=== PATIENT | female | born 1960 | race Caucasian/White ===

== ENCOUNTER → 2019-03-07 | Outpatient (CLI) | payer OTHER ==
[2018-12-26 15:00] VITALS: BP 95/45
[~2019-03-07] MED LIST: MULT1TAB52 PO; OXYC1TAB19 PO
--- NOTE | 2019-03-07 16:44 | KCIC ---
[facility] radiograph of the orbits 03/07/2019 CLINICAL HISTORY: Pre-MRI evaluation. History of metal exposure to the eyes. Damico digital radiographs of the skull were obtained with the patient looking up and down. No radiopaque foreign body is seen involving either orbit. The visualized paranasal sinuses are clear. No fracture is seen. IMPRESSION: No radiopaque foreign body is seen involving either orbit. Electronically signed by: Kushal Fernandez MD (03/07/2019 4:41 PM) [facility] [place]-KCIC1
--- NOTE | 2019-03-08 11:41 | KCIC ---
MR of the MR of the right shoulder HISTORY: Right shoulder pain since a fall in December. TECHNIQUE: Routine multiplanar sequences are obtained. FINDINGS: The acromioclavicular joint is mildly degenerative. Full-thickness rotator cuff tear of the supraspinatus tendon and extending into the anterior infraspinatus tendon. Retraction measures 3 cm. Partial tearing through the remaining infraspinatus tendon. Subscapularis tendon is grossly intact. Trace fluid in the subdeltoid bursa. No evidence of a labral tear or acute articular cartilage defect. The biceps tendon is intact. No bone destruction or acute fracture. No acute soft tissue abnormality. IMPRESSION: Rotator cuff tear, with a moderate-sized full-thickness retracted component involving the supraspinatus through the anterior infraspinatus tendon. Electronically signed by: Zay Lemos MD (03/08/2019 11:38 AM) [facility]-KCIC2
== END | disposition home or self-care (01) ==
LOC: KCIC MRI 15:39
PROVIDERS: ATTEND Orthopaedic Surgery
DX: Z03.89 Encounter for observation for other suspected diseases and conditions ruled out (principal); M75.101 Unspecified rotator cuff tear or rupture of right shoulder, not specified as traumatic
CPT/HCPCS: 70030; 73221

== ENCOUNTER 2019-05-03 05:56 | Day surgery (SDC) | payer OTHER ==
[~2019-05-03 05:56] MED LIST changes: +ASCO1TAB14 PO; +PREMPRO 0.3 MG1 EACH PO
[2019-05-03] MEDS ORDERED: BUPIVAC MPF-EPI 0.5%-1:200000 30 ML VIAL. ONE (06:15)
[2019-05-03] MEDS ORDERED: PROPOFOL 20 ML IV ONE (06:48)
[2019-05-03] MEDS ORDERED: BUPIVACAINE MPF 0.5% 10 ML VIAL. IJ ONE (07:00)
[2019-05-03] MEDS ORDERED: IV RINGERS,LACTATED 1000ML 1,000 ML IV SCH (07:00)
[2019-05-03] MEDS ORDERED: BUPIVACAINE MPF 0.5% 30 ML VIAL. ONE (07:13)
[2019-05-03] MEDS ORDERED: BUPIVACAINE MPF 0.25% 30 ML VIAL. ONE (07:14)
[2019-05-03] MEDS ORDERED: BUPIVAC MPF-EPI 0.5%-1:200000 30 ML VIAL. INJ ONE (07:15)
--- NOTE | 2019-05-03 07:18 | DISCH ---
DISCHARGE INSTRUCTIONS Condition on Discharge Condition on Discharge: Stable Activity After Discharge Activity Instructions for Disc: Other, see below (immediate passive range of motion advancing to active range of motion and strengthening as tolerated no immobilization or other restrictions) Diet after Discharge Diet after Discharge: Regular Wound Incision Care Wound/Incision Care: Ice to area for comfort Community/Resources/Services Services at Discharge: PT EVALUATE & TREAT (prescription provided for physical therapy to start tomorrow) Contacting the DRKei after DC Call your doctor for: Concerns you may have Follow-Up Follow up with: Dr. Castelan 1 week TASNEEM CASTELAN MD May 03, 2019 07:18
[2019-05-03] MEDS ORDERED: fentaNYL PF VIAL 100 MCG/2 ML VIAL ONE (07:36)
--- NOTE | 2019-05-03 07:48 | PDOC4 ---
Operative Note Operative Note Date of surgery: 05/03/2019 Preoperative diagnosis: History of right shoulder rotator cuff repair with subsequent adhesive capsulitis right shoulder Postoperative diagnosis: Same Operative procedure: Right shoulder manipulation under anesthesia and injection glenohumeral joint Surgeon: Flip Anesthesia: Deep sedation provided by anesthesia Complications: None Operative indications: Sultana is about 5 weeks out from rotator cuff repair and although doing initially well in physical therapy has gotten more stiff despite trying to push stretching exercises at physical therapy and with a home exercise program. She is now developed adhesive capsulitis and we discussed the treatment options in detail in my clinic note of yesterday. She agreed to proceed with operative evaluation and treatment of a shoulder manipulation and injection Operative text: Patient was identified procedure verified and after adequate amounts of propofol sedation were administered timeout was performed and the right shoulder and procedure were verified and the shoulder was first examined under anesthesia found to lack approximately 80 of elevation as well as terminal external rotation in abduction. About 165 of elevation was restored after the palpable release of tissue and she likewise achieved all but the terminal 15 of external rotation and abduction and normal internal rotation compared to the contralateral side. Normal stability was retained she was then injected in the glenohumeral joint with 10 mL of half percent Marcaine with epinephrine. Patient tolerated the procedure well TASNEEM MORENO MD May 03, 2019 07:48
[2019-05-03] MEDS ORDERED: oxyCODONE/APAP 7.5/325 1 TAB TABLET ONE (07:51)
[2019-05-03 07:58] VITALS: BP 113/58
[2019-05-03] MEDS ORDERED: fentaNYL PF VIAL 100 MCG/2 ML VIAL IV ONE ×2 (08:00→08:15)
[2019-05-03] MEDS ORDERED: oxyCODONE/APAP 7.5/325 1 TAB TABLET PO ONE (08:15)
== END 2019-05-03 08:24 ==
LOC: SURG 05:56
PROVIDERS: ATTEND Orthopaedic Surgery
DX: M75.01 Adhesive capsulitis of right shoulder (principal); Z98.51 Tubal ligation status; Z98.890 Other specified postprocedural states; Z87.891 Personal history of nicotine dependence; Z72.89 Other problems related to lifestyle; Z88.0 Allergy status to penicillin
CPT/HCPCS: 20610; 23700; J2704; J3010; J3490

== ENCOUNTER → 2021-02-13 | Outpatient (CLI) | payer OTHER ==
[~2021-02-13] MED LIST changes: +ACET1TAB33 PO; +MULT-445 PO; +MULT-735 PO; -MULT1TAB52 PO; +NAPR-683 PO
== END ==
LOC: LAB 09:09
PROVIDERS: ATTEND Orthopaedic Surgery
DX: Z01.812 Encounter for preprocedural laboratory examination (principal); M75.122 Complete rotator cuff tear or rupture of left shoulder, not specified as traumatic; Z20.822 Contact with and (suspected) exposure to COVID-19
CPT/HCPCS: U0003

== ENCOUNTER → 2021-02-13 | Outpatient (CLI) | payer OTHER ==
[~2021-02-13] MED LIST changes: +BUPIVACAINE MPF 0.5% 10 ML VIAL. IJ ONE; +IOHEXOL 300 MG/ML 50 ML VIAL. INT ART ONE; +methylPREDNISolone ACETATE 80 MG/ML VIAL. INT ART ONE
--- NOTE | 2021-02-13 15:33 | RAD ---
EXAM: Fluoroscopically guided right injection. HISTORY: 60-year-old woman with right hip pain, referred for fluoroscopically guided right hip inject ion of Depo-Medrol and local anesthetic.. TECHNIQUE: The risks and benefits of the procedure were discussed with the patient and written and ve rbal consent were obtained. A time out procedure was performed. Fluoroscopic imaging of the right hip was performed. The overlying skin was sterilely prepped and inf iltrated with 1% lidocaine for local anesthesia. A 22-gauge spinal needle was then advanced into the joint space under fluoroscopic guidance. Intra-articular positioning positioning was confirmed with a small injection of iodinated contrast. A cocktail containing 1 mL of 80 mg of Depo-Medrol, admixed w ith 3 mL of 0.5 percent bupivacaine was injected into the right hip and the tubing was flushed with a n additional 2 mL of 0.5 percent bupivacaine. Instrumentation was withdrawn and a sterile dressing pl aced. There were no immediate complications. Fluoroscopy time 0.3 minutes. 5 images were obtained. IMPRESSION: Successful fluoroscopically guided right hip injection for intra-articular steroid and lo alok anesthetic administration. Electronically signed by: Mann Manrique MD (02/13/2021 3:30 PM) [id number]
== END | disposition home or self-care (01) ==
LOC: RAD 09:11
PROVIDERS: ATTEND Orthopaedic Surgery
DX: M70.61 Trochanteric bursitis, right hip (principal); M76.9 Unspecified enthesopathy, lower limb, excluding foot; Z87.440 Personal history of urinary (tract) infections; Z98.51 Tubal ligation status; Z98.890 Other specified postprocedural states; Z79.899 Other long term (current) drug therapy; Z87.891 Personal history of nicotine dependence; Z72.89 Other problems related to lifestyle; Z88.0 Allergy status to penicillin
CPT/HCPCS: 20610; 77002; J1040; J3490; Q9967

== ENCOUNTER 2021-02-15 06:42 | Day surgery (SDC) | payer OTHER ==
[~2021-02-15] VITALS: Ht 162.6 cm; Wt 62.1 kg
[~2021-02-15 06:42] MED LIST changes: -BUPIVACAINE MPF 0.5% 10 ML VIAL. IJ ONE; +CLINDAMYCIN 900MG PREMIX 50 ML IV PRN; +HYDROmorphone 2 MG/ML VIAL IVP PRN; -IOHEXOL 300 MG/ML 50 ML VIAL. INT ART ONE; +IV RINGERS,LACTATED 1000ML 1,000 ML IV SCH; +MORPHINE SULFATE 2 MG/ML VIAL. IVP PRN; -MULT-735 PO; +PROCHLORPERAZINE 10 MG/2 ML VIAL. IVP PRN; +fentaNYL PF VIAL 100 MCG/2 ML VIAL IVP PRN; -methylPREDNISolone ACETATE 80 MG/ML VIAL. INT ART ONE
[2021-02-15] MEDS ORDERED: BUPIVACAINE MPF 0.5% 30 ML VIAL. ONE (07:07)
[2021-02-15] MEDS ORDERED: EPINEPHrine VIAL 30 MG/30 ML VIAL ONE (07:12)
[2021-02-15] MEDS ORDERED: MULT-735 PO (07:12)
[2021-02-15] MEDS ORDERED: PROPOFOL 10 MG/ML (20ML) VIAL. IV ONE (07:50)
[2021-02-15] MEDS ORDERED: LIDOCAINE 2% PF 5 ML VIAL. ONE (07:50)
[2021-02-15] MEDS ORDERED: DEXAMETHASONE SOD PHOS 4 MG/ML VIAL ONE (07:50)
[2021-02-15] MEDS ORDERED: SEVOFLURANE > 120 MINUTES. IH ONE (07:50)
[2021-02-15] MEDS ORDERED: ONDANSETRON PF 4 MG/2 ML VIAL. ONE (07:50)
[2021-02-15] MEDS ORDERED: fentaNYL PF VIAL 100 MCG/2 ML VIAL ONE (07:50)
[2021-02-15] MEDS ORDERED: MIDAZOLAM HCL/PF 2 MG/2 ML VIAL. ONE (08:03)
[2021-02-15] MEDS ORDERED: ePHEDrine PF IN SALINE 50 MG/10 ML SYRINGE. IV ONE (08:16)
[2021-02-15] MEDS ORDERED: OXYC1TAB19 PO (10:38)
--- NOTE | 2021-02-15 10:40 | DISCH ---
DISCHARGE INSTRUCTIONS Condition on Discharge Condition on Discharge: Stable Activity After Discharge Activity Instructions for Disc: Other, see below (Pendulum exercises and pa ssive range of motion of left shoulder only with elbow at side, may do fine motor use such as eating writing typing) Lifting Instructions after Dis: No pulling or pushing Weight Bearing Status after Di: Non weight bearing Diet after Discharge Diet after Discharge: Regular Wound Incision Care Wound/Incision Care: Ice to area for comfort, Change dressing (May remove dressing in 2 days may then shower no soaking until sutures removed) Community/Resources/Services Services at Discharge: PT EVALUATE & TREAT (Prescription written for passive range of motion only for 4 weeks postop) Contacting the after DC Call your doctor for: Concerns you may have Follow-Up Follow up with: Dr. Castelan or Donaldo 10 days TASNEEM CASTELAN MD Feb 15, 2021 10:39
[2021-02-15] MEDS ORDERED: oxyCODONE/APAP 7.5/325 1 TAB TABLET PO ONE (11:00)
[2021-02-15 11:05] VITALS: BP 110/54
--- NOTE | 2021-02-15 13:36 | PDOC4 ---
Operative Note Operative Note Date of surgery: 02/15/2021 Preoperative diagnosis: Rotator cuff and superior labral tear Postoperative diagnosis: Same with type 1 SLAP tear and full-thickness retracted distal supraspinatus tear Operative procedure: Left shoulder arthroscopy arthroscopic rotator cuff repair and labral debridement Surgeon: Flip Assist: Hang field assist Anesthesia: General plus scalene block Estimated blood loss: 10 cc Complications: None Operative indications: Please see my orthopedic clinic note for detailed operative indications and note that there is indication of a full-thickness rotator cuff tear and superior labral pathology. I had gone over with her the risks benefits postoperative course of arthroscopic treatment and plan for rotator cuff repair and possible labral debridement versus biceps tenodesis along with addressing any other pathological conditions at the time of surgery. I gone through the specific restrictions and the rationale with her and the risks of nonhealing infection nerve or blood vessel damage continued pain medical or other anesthetic complications among others she agrees to proceed with surgical evaluation and treatment Operative text: Patient was identified procedure verified patient placed in the supine position on the operating table. After adequate amounts of general anesthesia plus a pre-existing scalene block were obtained she was placed in the decubitus position left side up all bony prominences were well-padded. Shoulder was examined under anesthesia found to have full range of motion and no instability. The left shoulder was then prepped and draped in standard sterile fashion placed in the arthroscopic arm garcia with a total of 10 pounds of traction and after timeout was performed patient procedure identified and verified a standard posterior portal was established an anterior portal established using spinal needle localization and the shoulder joint was systematically examined. She was noted to have significant labral fraying around the entire superior margin which was trimmed back to stable tissue but the biceps anchor was intact. Biceps was likewise preserved. She had a full- thickness tear of the the supraspinatus tendon at its insertion. Infraspinatus insertion was intact at the joints surface and she had a normal bare area of the humerus as well as normal capsule ligamentous structures and a well-preserved glenohumeral articulation. Subacromial bursa was entered and was cleared to visualize the complex full-thickness tear of the entire supraspinatus insertion was noted and the footprint was debrided back to stable bleeding tissue with the arthroscopic bur but not decorticated. A [id number] repair was first carried out with max braid suture to restore the rotator cuff tear to a normal U configuration. A total of 2 double loaded juggernaut Biomet anchors were placed with 2 #2 max braid sutures each. These were placed through the supraspinatus tendon in a simple fashion and anchored laterally with a Quatro link knotless peek anchor which provided excellent fixation and a watertight repair was noted under all degrees of internal/external rotation. Joint was drained of arthroscopic fluid portals closed with nylon suture sterile dressings were applied patient was placed in an immobilizer returned to recovery room in stable condition having tolerated procedure well. Hang field assist was present for the procedure assisted in the patient positioning prepping draping retraction closure and dressings TASNEEM MORENO MD Feb 15, 2021 13:36
== END 2021-02-15 11:55 | disposition home or self-care (01) ==
LOC: SURG 06:42
PROVIDERS: ATTEND Orthopaedic Surgery
DX: S43.432A Superior glenoid labrum lesion of left shoulder, initial encounter (principal); Z87.440 Personal history of urinary (tract) infections; Z98.51 Tubal ligation status; Z98.890 Other specified postprocedural states; Z79.899 Other long term (current) drug therapy; Z72.89 Other problems related to lifestyle; Z87.891 Personal history of nicotine dependence; Z88.0 Allergy status to penicillin; X58.XXXA Exposure to other specified factors, initial encounter; Y93.89 Activity, other specified; Y92.89 Other specified places as the place of occurrence of the external cause; Y99.8 Other external cause status
CPT/HCPCS: 29822; 29827; 64415; A4209; A4565; A4930; C1713; J0171; J1100; J2250; J2405; J2704; J3010; J3490

== ENCOUNTER → 2021-04-02 | Outpatient (CLI) | payer OTHER ==
[~2021-04-02] MED LIST changes: -CLINDAMYCIN 900MG PREMIX 50 ML IV PRN; -HYDROmorphone 2 MG/ML VIAL IVP PRN; -IV RINGERS,LACTATED 1000ML 1,000 ML IV SCH; -MORPHINE SULFATE 2 MG/ML VIAL. IVP PRN; +MULT-735 PO; -PROCHLORPERAZINE 10 MG/2 ML VIAL. IVP PRN; -fentaNYL PF VIAL 100 MCG/2 ML VIAL IVP PRN
--- NOTE | 2021-04-02 13:50 | KCIC ---
EXAM: Lumbar spine MRI without contrast. HISTORY: Lumbar radiculopathy. TECHNIQUE: Multiplanar, multisequence magnetic resonance imaging of the lumbar spine was performed wi thout contrast. COMPARISON: None. FINDINGS: There is mild lumbar scoliosis. There is minimal retrolisthesis of L3 on L4, measuring 1 to 2 mm. There is multilevel endplate remodeling with disc space narrowing and Schmorl's node formation . There are few osseous hemangiomas. There is no suspicious osseous lesion. There is no acute or suba cute fracture. The conus terminates at L1. At L1-L2, there is a posterior central disc protrusion with slight superior extrusion superimposed on a disc bulge and endplate remodeling. There is no stenosis. At L2-L3, there is a disc bulge and endplate remodeling. There is mild right facet arthropathy. There is no stenosis. At L3-L4, there is a disc bulge and endplate remodeling. There is mild bilateral facet arthropathy. T here is no stenosis. At L4-5, there is a disc bulge and endplate remodeling. There is no stenosis. At L5-S1, there are bilateral lateral recess to extra foraminal disc protrusions superimposed on a di sc bulge and endplate osteophytosis. There is mild to moderate bilateral foraminal stenosis with abut ment the exiting L5 nerve roots. There is mild central canal stenosis. IMPRESSION: Multilevel degenerative change involving the lumbar spine, primarily at L5-S1. There is a ssociated mild to moderate bilateral foraminal stenosis abutment the exiting L5 nerve root and mild c entral canal stenosis at this level. Electronically signed by: Jennifer Duncan MD (04/02/2021 1:47 PM) [id number]
== END ==
LOC: KCIC MRI 12:26
PROVIDERS: ATTEND Orthopaedic Surgery
DX: M47.27 Other spondylosis with radiculopathy, lumbosacral region (principal); M48.061 Spinal stenosis, lumbar region without neurogenic claudication
CPT/HCPCS: 72148

== ENCOUNTER → 2021-05-14 | Outpatient (CLI) | payer OTHER ==
[~2021-05-14] MED LIST changes: +ASCO100T4 PO; +vitamin d PO
--- NOTE | 2021-05-14 12:57 | PDOC1 ---
INITIAL PAIN CONSULT DATE OF SERVICE: DOS: DATE: 05/14/21 TIME: 12:51 CHIEF COMPLAINT: Chief Complaint: Low back and right lower extremity pain HISTORY OF PRESENT ILLNESS: 60-year-old female presents with history of pain in the low back and right greater than left lower extremities since October 2020 patient reports she fell while at home and had some significant pain in the low back and bilateral lower extremities again worse on the right side but present bilaterally specially in the backs of the knees radiating from the low back in the posterior gluteus posterior lateral thigh lateral anterior thigh posterior knees medial thighs again worse on the right than the left patient reports is worse with walking standing changing positions is waking from sleep least 3-5 times at night repo rts it does not affect her bowel bladder control does affect her ability to walk specially any extended distance greater than about half a mile patient reports the pain is constant and sharp in the low back radiating and shooting in the right lower extremity increasing at night patient rates her disability rating 0- 10 10 me the worst is a 7 with family responsibilities recreation social activity occupation 8 with sexual behavior and 7 with life support activities. Patient is taking oxycodone is also tried naproxen and Medrol Dosepak which did help with the naproxen has not been significantly decreasing the pain but the Medrol Dosepak was fairly significant as is the oxycodone by about 50% patient reports she has had trigger point injections as well as physical therapy was not significantly decreasing the pain as recently as January of this year patient is doing exercise daily and stays active even though she is in pain she is still walking most days. Patient did have an MRI scan lumbar spine showing multilevel degenerative change primarily at L5-S1 with bilateral lateral recess to extraforaminal disc protrusions with mild to moderate bilateral foraminal stenosis and abutment of the exiting L5 nerve roots. Patient reports no loss of motor function but significant fatigability of lower extremity specially on the right with ambulation. PAST MEDICAL HISTORY: PMH: Arthritis PREVIOUS SURGERIES: Past Surgical Hx: Right shoulder rotator cuff repair left shoulder rotator cuff repair right wrist surgery, , cervical cryosurgery, deviated septum repair, breast implants, left knee surgery, tubal ligation CURRENT MEDICATIONS: Current Meds: Active Scripts Medications Dose Route/Sig Max Daily Dose Days Date Category Vitamin C (Ascorbic Acid) 100 Mg Tablet 1 Tab PO DAILY 30 05/14/21 Reported [vitamin d] PO 6/29/21 Reported Percocet 7.5-325 Mg Tablet (Oxycodone/Acetaminophen) 1 Each Tablet 1 Tab PO PRN Q4HRS PRN 02/15/21 Rx One-Daily Multi-Vitamin (Multivitamin) 1 Each Tablet 1 Tab PO DAILY 30 02/15/21 Reported ALLERGIES; Allergies: Coded Allergies: Penicillins (Verified Allergy, Intermediate, UNKNOWN (? ), 05/03/19) FAMILY HISTORY: Family Hx: No major medical problems or conditions that she is aware of SOCIAL HISTORY: Social Hx: Patient drinks 1-2 alcoholic drinks daily does not smoke says any illegal illicit recreational drugs is lives with her spouse has 2 children living at home lives in [facility] REVIEW OF SYSTEMS: ROS: Positive for those items mentioned in history of present illness, all systems are reviewed, otherwise negative ,and are complete full and well-documented on patient's chart. PHYSICAL EXAM: VS: Blood pressure is 124/76 pulse 62 respirations 18 temperature 99.0 F height 5 feet 4 inches weight is 129 pounds PE: PHYSICAL EXAMINATION: GENERAL: The patient is awake, alert, oriented, appropriate, very pleasant in demeanor HEENT: Shows normocephalic, atraumatic. Extraocular movements are intact and symmetrical. Oral cavity: Mucous membranes moist and pink. Dentition is intact. NECK: Shows anterior throat supple without palpable lymphadenopathy noted. Swallow reflex symmetrical. CHEST: Shows normal on inspection. Breath sounds are clear bilaterally, no rales rhonchi wheeze also. HEART: Shows S1, S2 clear. No murmurs auscultated. ABDOMEN: Soft, nontender, nondistended, flat. No palpable organomegaly is noted. No rebound or guarding demonstrated. BACK: Shows spine grossly in the midline. Normal-appearing cervical lordotic curvature. There is slightly increased thoracic kyphosis, some minor flattening of the lumbar lordotic curvature. No previous surgical scars are noted. Lumbar paraspinous muscles show symmetrical on inspection, on palpation shows some moderate tenderness diffusely throughout the upper, middle and lower distribution of the paraspinous muscles bilaterally and also into the lower thoracic paraspinous musculature, firm and tender, but without specific trigger points, without radiation of pain. The patient has good rotational motion of the lumbar spine, both laterally as well as extension and flexion without s ignificant difficulty. No tenderness over the spinous processes, sacrum or sacroiliac regions. EXTREMITIES: Lower extremities show deep tendon reflexes 2+ in the patellar and tendo calcaneus tendons. Motor exam is 4 on a scale of 5 with right dorsiflexio n, extension, quadriceps and hamstring flexion and 5/5 on the left. Peripheral pulses are 1 posterior tibial. No peripheral edema is noted bilaterally. Lower extremities are warm and dry to touch, equal in color and appearance. Straight leg raise noted to be positive on the right about 45 degrees, left side is negative. Gaenslen's and Gee's maneuvers are negative as well. The patient is able to stand, stand her toes without significant difficulty or loss of balance walks with a normal-appearing gait does not appear to be favor the right or left lower extremity significantly and does not use any assistive devices to ambulate such as canes or walkers. SKIN: Shows warm and dry, good turgor. No edema. No sores, rashes or bruising throughout. IMPRESSION: Impression: 60-year-old female with 7-month history of pain low back right greater than left lower extremity radicular fashion. MRI scan lumbar spine as noted Arthritis Plan: Options were discussed including continued physical therapies interventional techniques and medication management. Patient elects interventional techniques, we discussed a lumbar epidural steroid injection using descriptions as well as anatomical models to describe the procedure. Patient will wait for preauthorization with her insurance provider once obtained left return for a translaminar approach L5-S1 lumbar epidural steroid injection. In the meantime patient continue with stretching strength exercises daily as well as walking as tolerated. STACI BARRERA MD May 14, 2021 12:57
== END | disposition home or self-care (01) ==
LOC: PNCL 11:25
PROVIDERS: ATTEND Anesthesiology
DX: M54.5 Low back pain (principal); M79.604 Pain in right leg; M19.90 Unspecified osteoarthritis, unspecified site; Z87.440 Personal history of urinary (tract) infections; Z98.51 Tubal ligation status; Z98.890 Other specified postprocedural states; Z79.899 Other long term (current) drug therapy; Z87.891 Personal history of nicotine dependence; Z88.0 Allergy status to penicillin; Z72.89 Other problems related to lifestyle
CPT/HCPCS: 99205; G0463

== ENCOUNTER → 2021-05-27 | Outpatient (CLI) | payer OTHER ==
[~2021-05-27] MED LIST changes: +IOHEXOL 180 MG/ML 10 ML VIAL. ONE; +methylPREDNISolone ACETATE 40 MG/ML VIAL. ONE; +methylPREDNISolone ACETATE 80 MG/ML VIAL. ONE
--- NOTE | 2021-05-27 08:14 | PDOC ---
Progress Note - Pain Clinic Date of Service: DOS: DATE: 05/27/21 TIME: 08:10 Diagnosis: Dx: Lumbar radiculopathy with lumbar degenerative disease lumbar spine History or Present Illness: HPI: 60-year-old female returns for follow-up status post initial evaluation preautho rization for lumbar epidural steroid injection. Patient reports still significant pain in the low back and right lower extremity posterior gluteus posterior thigh posterior calf and knee worse with walking standing changing positions better with sitting or laying down patient rates is an 8 on scale 10 is worse over the past week 8 on average 6 its least and is a 6 today. Patient reports aching and sharp constant on and off in intensity but always present. Patient reports it wakes her from sleep about once every 7 hours also has a new finding of left arm and shoulder pain with radiating pain into the left upper extremity into the middle and first fingers on the left hand this has been noticeable a few nights when she is been sleeping having to reposition many times to get this to go away. Patient has had some previous surgery on the left shoulder but this feels different radiates more from the base of the neck. We discussed that if this becomes more persistent we will get films and potential treatment for this as well as she seems to be developing the cervical radiculopathy as well. Patient reports no other complaints or other findings or deficits. Physical Exam: VS: Blood pressure is 120/70 pulse 71 respirations 18 temperature 98.3 F height is 5 feet 4 inches weight is 123 pounds PE: PHYSICAL EXAMINATION: GENERAL: The patient is awake, alert, oriented, appropriate, very pleasant in demeanor HEENT: Shows normocephalic, atraumatic. Extraocular movements are intact and symmetrical. Oral cavity: Mucous membranes moist and pink. NECK: Shows anterior throat supple without palpable lymphadenopathy noted. Swallow reflex symmetrical. CHEST: Shows normal on inspection. Breath sounds are clear bilaterally, no rales or rhonchi. HEART: Shows S1, S2 clear. No murmurs auscultated. ABDOMEN: Soft, nontender, nondistended, flat. No palpable organomegaly is noted. No rebound or guarding demonstrated. BACK: Shows spine grossly in the midline. Normal-appearing cervical lordotic curvature. There is slightly increased thoracic kyphosis, some minor flattening of the lumbar lordotic curvature. Lumbar paraspinous muscles show symmetrical on inspection, on palpation shows some moderate tenderness diffusely throughout the upper, middle and lower distribution of the paraspinous muscles, without specific trigger points, without radiation of pain. The patient has good rotational motion of the lumbar spine, both laterally as well as extension and flexion without significant difficulty. No tenderness over the spinous processes, sacrum or sacroiliac regions. EXTREMITIES: Lower extremities show deep tendon reflexes 2+ in the patellar and tendo calcaneus tendons. Motor exam is 4 on a scale of 5 with right dorsiflexion, extension, quadriceps and hamstring flexion and 5/5 on the left. Peripheral pulses are 1+ posterior tibial. No peripheral edema is noted bilaterally. Lower extremities are warm and dry to touch, equal in color and appearance. SKIN: Shows warm and dry, good turgor. No edema. No sores, rashes or bruising throughout. Procedure: Procedure: Options were discussed with the patient. Patient's old chart was reviewed as her current medication regimen updated current review of systems updated today as well. We will proceed with a lumbar epidural steroid injection today with fluoroscopic guidance. Risks were discussed including but not limited to: Bleeding, infection, possibility of epidural hematoma and subsequent neurological compromise, dural puncture, headaches, spinal cord and/or nerve damage, side effects of steroid medication, and poor results regarding pain control. Patient understands and wished to proceed. Patient will return to the clinic in approximate 2 weeks for follow-up, was counseled as to return appointment activity level and side effects to be aware of. Medication Injected: Med Injected: Procedure is lumbar epidural steroid injection under local anesthetic using sterile prep and drape at the L5-S1 level using C-arm fluoroscopic guidance in both AP and lateral views medications injected is 120 mg Depo-Medrol +10mL preservative-free normal saline and 2 mL contrast- condition at discharge is stable patient tolerated procedure well had no complications. Condition at Discharge: Condition at Discharge: Condition at discharge is stable, patient alert the procedure well and had no complications. STACI BARRERA MD May 27, 2021 08:14
--- NOTE | 2021-05-27 08:14 | PDOC4 ---
Procedure Note: Procedure Note: Patient was consented for lumbar epidural steroid injection. Risks were discussed including but not limited to: Bleeding, infection, possibility of epidural hematoma and subsequent neurological compromise, dural puncture, headaches, spinal cord and/or nerve damage, side effects of steroid medication, and poor results regarding pain control. Patient understands and wished to proceed. Procedure is lumbar epidural steroid injection under local anesthetic using sterile prep and drape at the L5-S1 level using C-arm fluoroscopic guidance in both AP and lateral views medications injected is 120 mg Depo-Medrol +10mL preservative-free normal saline and 2 mL contrast- condition at discharge is stable patient tolerated procedure well had no complications. STACI BARRERA MD May 27, 2021 08:14
== END | disposition home or self-care (01) ==
LOC: PNCL 07:43
PROVIDERS: ATTEND Anesthesiology
DX: M51.16 Intervertebral disc disorders with radiculopathy, lumbar region (principal); Z87.440 Personal history of urinary (tract) infections; Z98.51 Tubal ligation status; Z98.890 Other specified postprocedural states; Z87.891 Personal history of nicotine dependence; Z79.899 Other long term (current) drug therapy; Z72.89 Other problems related to lifestyle; Z88.0 Allergy status to penicillin
CPT/HCPCS: 62323; J1030; J1040; Q9965

== ENCOUNTER → 2021-06-12 | Outpatient (CLI) | payer OTHER ==
--- NOTE | 2021-06-12 08:21 | PDOC ---
Progress Note - Pain Clinic Date of Service: DOS: DATE: 06/12/21 TIME: 08:18 Diagnosis: Dx: Lumbar radiculopathy with lumbar degenerative disease and lumbar spinal stenosis History or Present Illness: HPI: 60-year-old female returns to follow-up status post lumbar epidural steroid 1. Patient reports about 90% improvement still some pain in the right hip and right lower extremity but much better than it was patient is increase her activity with greater distance walking doing household activities work activities exercising more frequently with much greater ease and comfort patient reports the pain is on and off but when it is there it does grab her when she is walking patient reports is a sharp pain in the right hip rating the right posterior lateral gluteus lateral thigh anterior thigh medial thigh patient reports is an 8 on scale 10 is worse over the past week 5 on average to its least is a 5 today . Patient reports no loss of motor function but when she is walking occasionally will "grab" and have her feel unstable with 1 or 2 steps on the right leg and it seems to clear. Patient reports no bowel or bladder incontinence or other complaints. Physical Exam: VS: Blood pressure is 114/67 pulse 59 respirations 18 temperature 97.7 F height is 5 feet 4 inches weight is 125 pounds PE: PHYSICAL EXAMINATION: GENERAL: The patient is awake, alert, oriented, appropriate, very pleasant in demeanor. HEENT: Shows normocephalic, atraumatic. Extraocular movements are intact and symmetrical. Oral cavity: Mucous membranes moist and pink. NECK: Shows anterior throat supple without palpable lymphadenopathy noted. CHEST: Shows normal on inspection. Breath sounds are clear bilaterally, no rales or rhonchi bilaterally. HEART: Shows S1, S2 clear. No murmurs auscultated. ABDOMEN: Soft, nontender, nondistended, flat. No palpable organomegaly is noted. BACK: Shows spine grossly in the midline. Normal-appearing cervical lordotic curvature. There is slightly increased thoracic kyphosis, some minor flattening of the lumbar lordotic curvature. Lumbar paraspinous muscles show symmetrical on inspection, on palpation shows some moderate tenderness diffusely throughout the upper, middle and lower distribution of the paraspinous muscles without s pecific trigger points, without radiation of pain. The patient has good rotational motion of the lumbar spine, both laterally as well as extension and flexion without significant difficulty. No tenderness over the spinous processes, sacrum or sacroiliac regions. EXTREMITIES: Lower extremities show deep tendon reflexes 2+ in the patellar and tendo calcaneus tendons. Motor exam is full on a scale of 5 with right dorsiflexion, extension, quadriceps and hamstring flexion and 5/5 on the left. Peripheral pulses are 1+ posterior tibial. No peripheral edema is noted bilaterally. Lower extremities are warm and dry. SKIN: Shows warm and dry, good turgor. No edema. No sores, rashes or bruising throughout. Procedure: Procedure: Options were discussed with the patient. Patient's old chart was reviewed as her current medication regimen updated current review of systems updated today as well. We will proceed with a second in the series lumbar epidural steroid injection with fluoroscopic guidance. Risks were discussed including but not limited to: Bleeding, infection, possibility of epidural hematoma and subsequent neurological compromise, dural puncture, headaches, spinal cord and/or nerve damage, side effects of steroid medication, and poor results regarding pain control. Patient understands and wished to proceed. Patient return to the clinic in approximate 2 weeks for follow-up, was counseled as return appointment activity level and side effects to be aware of. Medication Injected: Med Injected: Procedure is lumbar epidural steroid injection under local anesthetic using s terile prep and drape at the L5-S1 level using C-arm fluoroscopic guidance in both AP and lateral views medications injected is 120 mg Depo-Medrol +10mL preservative-free normal saline and 2 mL contrast- condition at discharge is stable patient tolerated procedure well had no complications. Condition at Discharge: Condition at Discharge: Condition at discharge stable, patient already the procedure well and had no complications. STACI BARRERA MD Jun 12, 2021 08:21
--- NOTE | 2021-06-12 08:22 | PDOC4 ---
Procedure Note: ICD 10 Code: ICD 10 Code: M 54.17 M 48.07 M 51.36 Procedure Note: Patient was consented for lumbar epidural steroid injection. Risks were discussed including but not limited to: Bleeding, infection, possibility of epidural hematoma and subsequent neurological compromise, dural puncture, headaches, spinal cord and/or nerve damage, side effects of steroid medication, and poor results regarding pain control. Patient understands and wished to proceed. Procedure is lumbar epidural steroid injection under local anesthetic using sterile prep and drape at the L5-S1 level using C-arm fluoroscopic guidance in both AP and lateral views medications injected is 120 mg Depo-Medrol +10mL pr eservative-free normal saline and 2 mL contrast- condition at discharge is stable patient tolerated procedure well had no complications. STACI BARRERA MD Jun 12, 2021 08:21
== END | disposition home or self-care (01) ==
LOC: PNCL 07:40
PROVIDERS: ATTEND Anesthesiology
DX: M51.16 Intervertebral disc disorders with radiculopathy, lumbar region (principal); M48.061 Spinal stenosis, lumbar region without neurogenic claudication; Z87.440 Personal history of urinary (tract) infections; Z98.51 Tubal ligation status; Z98.890 Other specified postprocedural states; Z79.899 Other long term (current) drug therapy; Z87.891 Personal history of nicotine dependence; Z88.0 Allergy status to penicillin; Z72.89 Other problems related to lifestyle
CPT/HCPCS: 62323; J1030; Q9965; J1040